=== PATIENT | male | born 1975 | race Caucasian/White ===

== ENCOUNTER 2016-10-23 13:51 | Emergency (ER) | payer OTHER ==
[~2016-10-23] VITALS: Ht 180.3 cm; Wt 113.4 kg
== END 2016-10-23 15:33 | disposition home or self-care (01) ==
LOC: CED 13:51
DX: L02.11 Cutaneous abscess of neck (principal); J45.909 Unspecified asthma, uncomplicated; I10 Essential (primary) hypertension; F17.200 Nicotine dependence, unspecified, uncomplicated; Z86.14 Personal history of Methicillin resistant Staphylococcus aureus infection
CPT/HCPCS: 10060; 87070; 87077; 87186; 87205; 99283